=== PATIENT | male | born 1975 | race Caucasian/White ===

== ENCOUNTER 2018-04-15 06:36 | Day surgery (SDC) | payer OTHER ==
[2014-10-19 14:21] VITALS: BMI 29.9
--- NOTE | 2018-04-15 07:33 | CP.SDSHP ---
Same Day Surgery H & P - History Proposed Procedure: EGD. colonoscopy Pre-Op Diagnosis: persistent epigastric pain. rectal bleeding. family h/o colon cancer - Previous Medical/Surgical History Neuro: Backaches Pain: 2.Mild Pain Previous Surgical History: left meniscus tear - Allergies Allergies: Allergies No Known Allergies Allergy (Verified 04/15/18 07:10) - Physical Exam Mental Status: Alert & Oriented x3 Neuro: WNL Heart: WNL Lungs: WNL GI: WNL - Impression Impression: epigastric pain. rectal bleeding. family h/o colon cancer Pt. Evaluated Today:Candidate for Anesthesia & Procedure: Yes - Date & Time Date: 04/15/18 Time: 07:33 Short Stay Discharge - Short Stay Discharge Admitting Diagnosis/Reason for Visit: EPIGASTRIC PAIN / HEARTBURN/ GASTROINTESTINAL BLEED Disposition: HOME/ ROUTINE
[2018-04-15] MEDS ORDERED: Propofol 10 mg/ml Inj (20 ML) ONE (08:59)
[2018-04-15 10:19] VITALS: TEMP 97.6
[2018-04-15 10:53] VITALS: BP 115/63; PULSE 72; RESP 15; O2SAT 97
== END 2018-04-15 10:45 | disposition home or self-care (01) ==
LOC: C.ENDO 06:36
PROVIDERS: ATTEND Internal Medicine Gastroenterology
DX: K64.1 Second degree hemorrhoids (principal); D12.8 Benign neoplasm of rectum; K44.9 Diaphragmatic hernia without obstruction or gangrene; K21.0 Gastro-esophageal reflux disease with esophagitis; Z80.0 Family history of malignant neoplasm of digestive organs
CPT/HCPCS: 43239; 45380; 88305; 88312; 88342; J2001; J2704; J3010

== ENCOUNTER 2018-08-19 06:31 | Day surgery (SDC) | payer OTHER ==
[2014-10-19 14:21] VITALS: BMI 29.9
[2018-08-19] MEDS ORDERED: Midazolam 2 MG/2 ML VIAL ONE (07:58)
[2018-08-19] MEDS ORDERED: Propofol 10 mg/ml Inj (20 ML) ONE ×2 (07:58→08:24)
[2018-08-19] MEDS ORDERED: Lidocaine Hydrochloride 5 ML INJ ONE (07:59)
[2018-08-19] MEDS ORDERED: Lactated Ringer's 1,000 ML IV ONE (08:12)
[2018-08-19] MEDS ORDERED: Lactated Ringer's 500 ML IV SCH (08:15)
--- NOTE | 2018-08-19 08:15 | CP.SDSHP ---
Same Day Surgery H & P - History Proposed Procedure: EGD Pre-Op Diagnosis: Eosinophillic esophagitis vs reflux esophagitis-assess therapy - Previous Medical/Surgical History Neuro: Backaches, Other (DJD, gastritis, gerd, ) - Allergies Allergies: Allergies No Known Allergies Allergy (Verified 04/15/18 07:10) - Physical Exam Vital Signs: Vital Signs 08/19/18 06:46 Temperature 97.5 F L Pulse Rate 54 L Respiratory 19 Rate Blood Pressure 129/70 O2 Sat by Pulse 99 Oximetry Mental Status: Alert & Oriented x3 Neuro: WNL Heart: WNL Lungs: WNL GI: WNL - Impression Impression: EoE vs reflux esophagitis-assess therapy Pt. Evaluated Today:Candidate for Anesthesia & Procedure: Yes - Date & Time Date: 08/19/18 Time: 08:15 Short Stay Discharge - Short Stay Discharge Admitting Diagnosis/Reason for Visit: GERD/ ESOPHAGITIS / DYSPHAGIA Disposition: HOME/ ROUTINE
[2018-08-19 09:07] VITALS: TEMP 98
[2018-08-19 09:43] VITALS: BP 104/61; PULSE 56; RESP 17; O2SAT 99
== END 2018-08-19 09:25 | disposition home or self-care (01) ==
LOC: C.ENDO 06:31
PROVIDERS: ATTEND Internal Medicine Gastroenterology
DX: K21.0 Gastro-esophageal reflux disease with esophagitis (principal); K20.0 Eosinophilic esophagitis; R13.10 Dysphagia, unspecified; K44.9 Diaphragmatic hernia without obstruction or gangrene; K29.70 Gastritis, unspecified, without bleeding; K20.9 Esophagitis, unspecified
CPT/HCPCS: 43239; 88305; 88312; 88313; J2250; J2704; J7120